=== PATIENT | female | born 1985 | race African-American/Black ===

== ENCOUNTER 2021-07-20 13:41 | Emergency (ER) | payer BC, OTHER ==
[~2021-07-20] VITALS: Ht 152.4 cm; Wt 54.4 kg
[2021-07-20] MEDS ORDERED: SODIUM CHLORIDE 0.9% 1,000 ML IV ONE (16:30)
[2021-07-20] MEDS ORDERED: ONDANSETRON HCL 4 MG/2 ML VIAL IV ONE (16:30)
[2021-07-20 16:47] LABS: Basophils # (auto) 0 10 ^3/uL (0-0.2); Basophils % (auto) 0.3 % (0.0-2.0); Eosinophils # (auto) 0 10 ^3/uL (0-0.8); Eosinophils % (auto) 0.2 % (0.0-7.0); Hematocrit 38.4 % (36.0-46.0); Lymphocytes # (auto) 2.2 10 ^3/uL (0.4-5.4); Lymphocytes % (auto) 27.4 % (10.0-50.0); Mean Corpuscular Hgb Conc. 33.8 g/dL (32.0-36.0); Mean Corpuscular Volume 91.7 fL (80.0-100.0); Monocytes # (auto) 0.4 10 ^3/uL (0-1.3); Monocytes % (auto) 5.3 % (0.0-12.0); Neutrophils # (auto) 5.5 10 ^3/uL (1.6-8.6); Neutrophils % (auto) 66.8 % (37.0-80.0); Red Blood Cells 4.19 10^6/uL (4.0-5.20); Red Cell Distribution Width 13.3 % (11.8-14.3); White Blood Cell 8.2 10^3/uL (4.4-10.8)
[2021-07-20 17:45] LABS: Alanine Aminotransferase 19 U/L (13-56); Alkaline Phosphatase 63 U/L (45-117); Anion Gap 10 (5-15); Aspartate Aminotransferase 31 U/L (15-37); BUN/Creatinine Ratio 13.4; Blood Urea Nitrogen 13 mg/dL (7-18); Carbon Dioxide 19 mmol/L (21-32); Chloride 107 mmol/L (98-107); GFR African American 85 mL/min; GFR Non-African American 70 mL/min; Glucose 104 mg/dL (74-106); Potassium 3.7 mmol/L (3.5-5.1); Sodium 136 mmol/L (136-145)
[2021-07-20 17:46] LABS: Albumin 3.8 g/dL (3.4-5.0); Total Protein 7.6 g/dL (6.4-8.2)
[2021-07-20 20:05] LABS: Urine Bacteria MOD /hpf (None Seen); Urine Blood Negative /uL (Negative); Urine Mucus FEW (None Seen); Urine Specific Gravity 1.031 (1.001-1.035); Urine WBC 131 /hpf (0 - 5)
[2021-07-20] MEDS ORDERED: cefTRIAXone 1GM/50ML D5W 50 ML IV ONE (21:00)
[2021-07-20 21:25] VITALS: BP 93/60
[2021-07-20] MEDS ORDERED: NITR-87 PO (21:31)
== END 2021-07-20 21:57 | disposition home or self-care (01) ==
LOC: EDBD 13:41 → ER 13:41
DX: S76.011A Strain of muscle, fascia and tendon of right hip, initial encounter (principal); R55 Syncope and collapse; N39.0 Urinary tract infection, site not specified; E86.0 Dehydration; X58.XXXA Exposure to other specified factors, initial encounter; Y93.89 Activity, other specified; Y92.89 Other specified places as the place of occurrence of the external cause; Y99.8 Other external cause status
CPT/HCPCS: 36415; 73502; 73552; 80053; 81001; 81025; 84702; 85025; 93005; 96361; 96365; 96375; 99285; J0696; J2405; J7030